=== PATIENT | female | born 1980 ===

== ENCOUNTER 2021-11-29 06:00 | Day surgery (SDC) | payer OTHER | END 2021-11-29 17:10 | disposition home or self-care (01) | LOC: CIR.AMB 06:00 | PROVIDERS: ATTEND Obstetrics & Gynecology | DX: N93.8 Other specified abnormal uterine and vaginal bleeding (principal); E66.9 Obesity, unspecified ==

== ENCOUNTER 2022-08-21 13:33 | Emergency (ER) | payer OTHER ==
[~2022-08-21] VITALS: Ht 157.5 cm; Wt 78.0 kg
== END 2022-08-21 21:49 | disposition home or self-care (01) ==
LOC: ER 13:33
DX: R10.84 Generalized abdominal pain (principal)

== ENCOUNTER 2022-09-12 05:10 | Day surgery (SDC) | payer OTHER ==
[~2022-09-12] VITALS: Ht 157.5 cm; Wt 78.0 kg
== END 2022-09-12 21:40 | disposition home or self-care (01) ==
LOC: CIR.AMB 05:10 → U 05:10 → CIR.AMB 10:00
PROVIDERS: ATTEND Obstetrics & Gynecology
DX: N93.8 Other specified abnormal uterine and vaginal bleeding (principal); Z20.822 Contact with and (suspected) exposure to COVID-19

== ENCOUNTER 2022-10-14 11:45 | Inpatient (IN) | payer OTHER ==
[~2022-10-14] VITALS: Ht 157.5 cm; Wt 84.8 kg
== END 2022-10-19 10:27 | disposition home or self-care (01) | DRG 743 ==
LOC: O/R 10-17 05:20 → SURH 10-17 06:45 → OB/GYN 10-17 13:02
PROVIDERS: ADMIT Obstetrics & Gynecology; ATTEND Obstetrics & Gynecology
PROC: 0UT90ZZ Resection of Uterus, Open Approach (ICD-10-PCS; principal; 2022-10-17 06:45)
DX: D25.1 Intramural leiomyoma of uterus (principal); Z20.822 Contact with and (suspected) exposure to COVID-19